=== PATIENT | male | born 1930 | race Native Hawaiian/Other Pacific Islander ===

== ENCOUNTER 2016-11-30 09:45 | Outpatient (CLI) | payer OTHER, BC ==
[~2016-11-30 09:45] MED LIST: DIGOXIN0.125 MG PO; DIOVAN HC1 PO; FURO20TA67 PO; LOVASTATIN40 MG PO; PIOG30TA PO; POT CL MICRO10 MEQ PO; PRANDIN1 MG PO; SPIRONOLACT25 MG PO; XARELTO20 MG PO
== END 2016-11-30 10:45 | disposition home or self-care (01) ==
LOC: RESP 09:45
DX: R06.00 Dyspnea, unspecified (principal); J90 Pleural effusion, not elsewhere classified; I48.91 Unspecified atrial fibrillation